=== PATIENT | female | born 2000 | race Two or more races ===

== ENCOUNTER 2022-03-25 08:37 | Outpatient (REF) | payer MEDICAID, SELFPAY ==
--- NOTE | ~2022-03-25 | US_ITS ---
EXAMINATION: US DIAGNOSTIC ULTRASOUND BREAST, BILATERAL CLINICAL INFORMATION: Pain and palpable abnormalities bilateral breasts. COMPARISON: None. TECHNIQUE: Ultrasound of the breast is performed with real-time lobo scale imaging and color Doppler. FINDINGS: RIGHT BREAST: At the 10 o'clock position approximately 11 cm from the nipple, in the region of palpable abnormality there is noted to be a hypoechoic well-circumscribed but somewhat lobular bordered 4.4 x 3.2 x 2.0 cm lesion without internal vascularity identified. The lesion is wider than it is tall. No significant distal sound shadowing or enhancement is appreciated. The lesion has the appearance of possible fibroadenoma. LEFT BREAST: At the 3 o'clock position, there is a well-circumscribed hypoechoic lesion which is wider than it is tall without internal vascularity 7 cm from the nipple. This measures approximately 3.0 x 2.5 x 3.4 cm in size. This has the appearance of possible fibroadenoma. Recommendation is for ultrasound-guided right breast biopsy of the slightly lobulated lesion to ensure the diagnosis of benign fibroadenoma with the bilateral breast lesions. It was discussed with the patient that if she is contemplating surgical removal of the lesions that the biopsy may not be necessary. Patient has said that she would prefer to have them surgically removed and will speak to the referring provider. I spoke to the referring provider's office with the above recommendation. US/US breast RT limited IMPRESSION: Bilateral solid avascular lesions with appearance of fibroadenomas for which biopsy of the left lesion is recommended if patient is not to have fibroadenomas removed surgically. ASSESSMENT: BI-RADS 4: Suspicious (subcategory 4A: Low suspicion for malignancy) RECOMMENDATION: Ultrasound-guided core biopsy if surgical removal is not planned.
== END 2022-03-25 08:38 | disposition home or self-care (01) ==
LOC: HO.MAMMO 08:37
PROVIDERS: Visit Provider Family Medicine
DX: N64.4 Mastodynia (principal)
CPT/HCPCS: 76642

== ENCOUNTER → 2022-04-15 15:56 | Outpatient (BNVA) | payer MEDICAID, SELFPAY | PROVIDERS: PCP Family Medicine; Referring Provider Family Medicine; Visit Provider Nurse Practitioner Family | DX: K58.1 Irritable bowel syndrome with constipation (principal); K21.9 Gastro-esophageal reflux disease without esophagitis; K59.04 Chronic idiopathic constipation; K80.20 Calculus of gallbladder without cholecystitis without obstruction | CPT/HCPCS: 99202 ==

== ENCOUNTER → 2022-04-19 13:43 | Outpatient (BNVA) | payer MEDICAID, SELFPAY | PROVIDERS: PCP Family Medicine; Referring Provider Family Medicine; Visit Provider Surgery | DX: D24.1 Benign neoplasm of right breast (principal); D24.2 Benign neoplasm of left breast | CPT/HCPCS: 99202 ==

== ENCOUNTER 2022-05-11 07:39 | Outpatient (REF) | payer MEDICAID, SELFPAY ==
--- NOTE | ~2022-05-11 | US_ITS ---
EXAMINATION: ULTRASOUND GUIDED CORE BIOPSY BREAST, RIGHT CLINICAL INFORMATION: 21-year-old with palpable fullness noted by patient for approximately one year, recently increased medial left and posterior upper outer right breast. No family history breast cancer. No discharge. Ultrasound demonstrates 4.4 cm mass likely fibroadenoma right breast 10:00 position 11 cm from nipple and a 3.4 cm mass left breast likely fibroadenoma 3:00 position 7 cm from nipple. COMPARISON: Targeted bilateral breast ultrasound 03/25/2022. FINDINGS: Hospital provided investments manager assisted for the consent and throughout the procedure. Proper informed consent is obtained from the patient after discussion of the procedure, potential risks and complications, and alternatives. Patient was given an opportunity for questions. The patient appeared to understand. The patient consented to the procedure and signed the consent form. GUIDANCE: Ultrasound-guided; aseptic technique. LESION: Macrolobulated solid mass posterior upper outer right breast, 4.4 cm in greatest dimension, probable fibroadenoma. APPROACH: Lateral medial. ANESTHESIA: 8 mL carbonated 1% lidocaine. DERMATOTOMY: Single skin vonda dermatotomy performed. NEEDLE: 14-gauge Achieve core biopsy device with 13.5-gauge co-axial guide needle. CORES: 4. CLIP: HydroMARK; shape: butterfly. Deployment of the clip within the mass is visible during real-time ultrasound. The patient tolerated the procedure well. No immediate complications. Home instructions reviewed with the patient. Final pathology results are pending. US/US breast ndl core biopsy RT IMPRESSION: 1. Status post ultrasound-guided core biopsy right breast. 2. Clip placed: HydroMARK; shape: butterfly. 3. Pathology pending. An addendum report will be issued.
[2022-05-11] MEDS: Lidocaine HCl 1 % 20 ML VIAL 9 ML SUBCUT (08:59)
[2022-05-11] MEDS: Sodium Bicarbonate 8.4% 50 MEQ/50 ML VIAL SUBCUT (09:00)
== END 2022-05-11 07:40 | disposition home or self-care (01) ==
LOC: HO.MAMMO 07:39
PROVIDERS: Visit Provider Surgery
DX: D24.1 Benign neoplasm of right breast (principal)
CPT/HCPCS: 19083; 88305

== ENCOUNTER → 2022-05-17 10:33 | Outpatient (BNVA) | payer MEDICAID, SELFPAY | PROVIDERS: Visit Provider Surgery | DX: D24.1 Benign neoplasm of right breast (principal); D24.2 Benign neoplasm of left breast | CPT/HCPCS: 99212 ==

== ENCOUNTER 2022-05-18 08:06 | Outpatient (REF) | payer MEDICAID, SELFPAY ==
[2022-05-18 11:47] LABS: Amylase 35 U/L (28-100); Lipase 13 U/L (8-78)
[2022-05-18 11:49] LABS: TSH reflex Free T4 4.86 uIU/mL (0.32-4.0)
[2022-05-18 12:37] LABS: Free T4 (Free Thyroxine) 1.03 ng/dL (0.71-1.85)
[2022-05-20 13:36] LABS: Transglutaminase Ab IgG <1.0 U/mL; Transglutaminase IgA <1.0 U/mL
== END 2022-05-18 08:07 | disposition home or self-care (01) ==
LOC: HO.HMGCLDS 08:06
PROVIDERS: PCP Family Medicine; Visit Provider Nurse Practitioner Family
DX: Z12.11 Encounter for screening for malignant neoplasm of colon (principal); R10.9 Unspecified abdominal pain; K21.9 Gastro-esophageal reflux disease without esophagitis
CPT/HCPCS: 36415; 82150; 83690; 84439; 84443; 86364

== ENCOUNTER → 2022-07-08 08:45 | Outpatient (BNVA) | payer MEDICAID, SELFPAY | PROVIDERS: PCP Family Medicine; Visit Provider Surgery | DX: K80.50 Calculus of bile duct without cholangitis or cholecystitis without obstruction (principal); Z79.899 Other long term (current) drug therapy | CPT/HCPCS: 99212 ==

== ENCOUNTER 2022-10-03 05:47 | Day surgery (SDC) | payer MEDICAID, SELFPAY ==
[2022-08-02 11:58] VITALS: BMI 27.6
--- NOTE | 2022-08-19 08:34 | HO.ANESPROP2 ---
HPI - Anesthesia Eval Consult details Narrative: 22yo F for Cholecystectomy Laparoscopic,poss open PMFSH Active Problems Active Problems: All Active Problems (Updated 08/02/22 @ 11:41 by Anel Guerrier, RN) Fibroadenoma of both breasts (Acute) Biliary colic (Acute) Past Medical History Medical History Abdominal pain Alopecia Family History Family History Paternal Grandmother Cancer Social History Social History Household Members: Children Alcohol intake: never Patient Tobacco Use Status: Never used Tobacco Meds Allergies Allergy/AdvReac Type Severity Reaction Status Date / Time No Known Allergies Allergy Verified 07/08/22 09:09 Home Medications Medication Instructions Recorded Confirmed Last Taken Type cholecalciferol (vitamin D3) 50 50 mcg PO DAILY 04/15/22 08/02/22 Unknown History mcg (2,000 unit) tablet pantoprazole 20 mg tablet,delayed 20 mg PO DAILY 04/15/22 08/02/22 Unknown History release Exam Exam Date and Time: August 19, 2022 0834 Height,Weight and Vital Signs: Height 5 ft 1 in Weight 66.224 kg Pertinent Lab Results Pertinent Lab Results: Laboratory Tests 05/18/22 08:13 Amylase 35 Lipase 13 TSH 4.86 H Free T4 1.03 Assessment and Plan Assessment Anesthesia Assessment: Chart Reviewed
--- NOTE | 2022-09-29 12:34 | HO.ANESPROP2 ---
Documented by User: Fidelina Villalta NP 09/29/22 12:35 HPI - Anesthesia Eval Consult details Narrative: 22yo F for Cholecystectomy Laparoscopic,poss open PMFSH Active Problems Active Problems: All Active Problems (Updated 08/02/22 @ 11:41 by Anel Guerrier RN) Fibroadenoma of both breasts (Acute) Biliary colic (Acute) Past Medical History Medical History Abdominal pain Alopecia Family History Family History Paternal Grandmother Cancer Social History Social History Household Members: Children Alcohol intake: never Patient Tobacco Use Status: Never used Tobacco Meds Allergies Allergy/AdvReac Type Severity Reaction Status Date / Time No Known Allergies Allergy Verified 07/08/22 09:09 Home Medications Medication Instructions Recorded Confirmed Last Taken Type cholecalciferol (vitamin D3) 50 50 mcg PO DAILY 04/15/22 08/02/22 Unknown History mcg (2,000 unit) tablet pantoprazole 20 mg tablet,delayed 20 mg PO DAILY 04/15/22 08/02/22 Unknown History release Exam Exam Date and Time: September 29, 2022 1234 Height,Weight and Vital Signs: Height 5 ft 1 in Weight 66.224 kg Assessment and Plan Assessment Anesthesia Assessment: Chart Reviewed Documented by User: Tin Banuelos MD 10/03/22 17:46 PMFSH Past Medical History Medical History Abdominal pain Alopecia Functional capacity: independent ambulation Family History Family History Paternal Grandmother Cancer Family history of problems with anesthesia: No Surgical History History of Problems with Anesthesia: No Social History Social History Household Members: Children Alcohol intake: never Patient Tobacco Use Status: Never used Tobacco Meds Allergies Allergy/AdvReac Type Severity Reaction Status Date / Time No Known Allergies Allergy Verified 07/08/22 09:09 Home Medications Medication Instructions Recorded Confirmed Last Taken Type cholecalciferol (vitamin D3) 50 50 mcg PO DAILY 04/15/22 08/02/22 Unknown History mcg (2,000 unit) tablet pantoprazole 20 mg tablet,delayed 20 mg PO DAILY 04/15/22 08/02/22 Unknown History release Exam Airway Mallampati Class: III TM Dist: >3cm Neck ROM: Full Loose/Missing/Broken Teeth: Yes Heart: S1,S2 Lungs: b/l breath sounds Assessment and Plan Assessment Anesthesia Assessment: Anesthesia Plan Discussed Final Anesthetic Review Family History of Problems with Anesthesia: No History of Problems with Anesthesia: No NPO: Yes ASA Class: II Final Preanesthetic Review: Meds/Allgs Chart Reviewed, Consent Obtained/Reviewed and Anes Risks/Benef Reviewed Patient Risk: Intermediate Procedure Risk: Intermediate Anesthetic Plan Anesthetic Plan: GA Disposition: Standard PACU
[2022-10-03] VITALS (11 sets, daily range): BP systolic 97–111; BP diastolic 53–70; PULSE 54–104; RESP 16–18; TEMP 36.1–36.7; O2SAT 97–100; BMI 26.6
[2022-10-03 06:27] LABS: UPreg QC Valid YES; Urine Pregnancy NEGATIVE (NEGATIVE)
[2022-10-03] MEDS: Lactated Ringers 1,000 ML 100 ML IVCONT (06:44)
--- NOTE | 2022-10-03 07:14 | MHC.SHP ---
Pre-Procedural Eval Section A Date of Service: 10/03/22 The patient is an INPATIENT: No Changes since office visit: Yes Patient answered all questions; No Cold of Flu in the past 2 weeks, No New Medical Problems and No Changes in Medication The History & Physical has been completed within 30 days and I have reviewed it.: No Section B Chief Complaint: Calculus of bile duct without cholangitis or pascual Details of Present Illness: Episodes of abdominal pain, the last occurring 1 week ago. She currently feels well with no abdominal pain Relevant Family History (Specify if Yes): No Relevant Social History: None Present Medications: see Short Stay Collaborative assessment Medical History: No relevant PMH History of Previous Operations: No relevant previous surgery Allergies: Allergies Allergy/AdvReac Type Severity Reaction Status Date / Time No Known Allergies Allergy Verified 07/08/22 09:09 Review of Systems Sugical H&P ROS: Negative: Constitution, Cardiovascular, Respiratory, Neurological, Psychiatric, Hem-Onc, Allergic/Immunologic, Gastrointestinal, Genitourinary, Musculoskeletal, Integumentary, Endocrine and Eyes/Ears/Nose/Throat Exam Surgical H&P Exam: Normal: HEENT, Normal: Heart, Normal: Lungs, Normal: Extremities, Normal: Abdomen, Normal: Skin and Normal: Neurological Plan Diagnosis/Plan: Unchanged I have reviewed the history and physical and performed a pertinent physical examination on my patient. No changes have occurred unless specified.
--- NOTE | 2022-10-03 08:41 | W.PM.OPN ---
Operative Note Operative Note Date of Service: 10/03/22 Narrative: Preoperative diagnosis: Bilary colic Postoperative diagnosis: Same Procedure: Laparoscopic cholecystectomy Surgeon: Lauro Westbrook MD Band Director: MELISSA See Anesthesia: General endotracheal Indications for procedure: 22-year-old female patient presenting with complaints of abdominal pain in the right upper quadrant found to have gallstones within the gallbladder. Patient's last episode of pain was approximately 1 week prior to surgery. Operative findings: Evidence of chronic cholecystitis with adhesions to the undersurface of the gallbladder. Specimen: gallbladder Estimated blood loss: Less than 2 mL Complications: none Procedure details: Patient was brought to the OR and placed in a supine position. After administering general anesthesia the patient's abdomen was prepped with ChloraPrep and draped in a sterile fashion. Local anesthesia consisting of 0.5% Sensorcaine without epinephrine was infiltrated in a periumbilical region. A 5 mm incision was made above the umbilicus in a transverse fashion. The Veress needle was then inserted while elevating abdominal cavity with towel clips. After positive drop test the abdomen was insufflated to a pressure of 15 mm of mercury. The Veress needle was then removed and a 5 mm trocar inserted. The camera was inserted in the abdomen explored. A 12 mm trocar was then placed in the epigastrium. Two 5 mm trocars placed in the right upper quadrant by the greenhouse assistant. The patient was placed in reverse Trendelenburg positioning and rotated to the left. The gallbladder was grasped with the fundus and retracted cephalad by the greenhouse assistant. The infundibulum was then grasped and retracted away from the liver bed, also by the greenhouse assistant. The Dolphin dissected was then used by the surgeon to dissect the peritoneum off the infundibulum to reveal the junction with the cystic duct. Cystic artery was noted slightly medial and posterior to the cystic duct. After obtaining a critical view the cystic duct was doubly clipped and divided. The cystic artery was then doubly clipped and divided. The gallbladder was then dissected off the liver bed using electrocautery with an L hook. Hemostasis was assured all times using the electrocautery. When the gallbladder is completely dissected off the liver bed was placed in an Endo-Catch bag and brought out through the epigastric incision . There were no drop stones. The gallbladder was sent to pathology for further examination. The abdomen was then re-examined. The liver bed was irrigated and suctioned dry. No bleeding or bile leak could be identified. CO2 was then evacuated and all trocars removed. Fascia was closed at the epigastric incision using a [id number] Polysorb suture. Skin was closed in all incisions using a subcuticular 4 0 Polysorb suture by both the surgeon and greenhouse assistant. Sterile dressings consisting of Steri-Strips, 2 x 2 gauze, and Tegaderm were then applied. The patient tolerated the procedure well. Sponge instrument and needle counts reported as correct. The patient was transferred to PACU in stable condition.
[2022-10-03] MEDS: ondansetron HCL 4 MG/2 ML VIAL IVPUSH (09:09)
[2022-10-03] MEDS: oxyCODONE HCl Immed Release 5 MG TABLET PO (09:31)
[2022-10-03] MEDS: fentaNYL citrate/PF 100 MCG/2 ML VIAL 25 MCG IVPUSH (09:47)
== END 2022-10-03 10:59 | disposition home or self-care (01) ==
PROVIDERS: Nurse Practitioner; PCP Family Medicine; Visit Provider Surgery
PROC: 0FT44ZZ Resection of Gallbladder, Percutaneous Endoscopic Approach (ICD-10-PCS; CPT 47562; principal; 2022-10-03 07:30)
DX: K80.10 Calculus of gallbladder with chronic cholecystitis without obstruction (principal); K66.0 Peritoneal adhesions (postprocedural) (postinfection); Z79.899 Other long term (current) drug therapy
CPT/HCPCS: 47562; 81025; 88304; J1170; J2250; J2405; J2550; J2795; J3010

== ENCOUNTER 2022-11-15 14:06 | Outpatient (REF) | payer MEDICAID, SELFPAY ==
--- NOTE | ~2022-11-15 | US_ITS ---
EXAMINATION: BILATERAL BREAST ULTRASOUND CLINICAL INFORMATION: Bilateral fibroadenomas followup with previous right breast fibroadenoma biopsied. COMPARISON: 05/11/2022 and 03/25/2022 TECHNIQUE: Bilateral targeted breast ultrasound. FINDINGS: Left breast: At approximately the 3 o'clock position, there is again noted to be a heterogeneous and hypoechoic mass which is well-circumscribed measuring approximately 3.8 x 2.8 x 2.9 cm. There is some internal vascularity present. This is stable or slightly smaller in size. Right breast: At the 10 o'clock position 6 cm from the nipple there is again noted to be hypoechoic mass with clip within it from previous biopsy, measuring approximately 3.2 x 2.0 x 3.6 cm in size without significant change in appearance. The lesion is wider than it is tall. There is some internal vascularity. US/US breast RT complete IMPRESSION: No significant change in appearance of hypoechoic masses within the bilateral breasts, consistent with fibroadenomas. Six-month follow up ultrasound is recommended bilaterally. BI-RADS 3, probably benign. RECOMMENDATION: 6 month bilateral ultrasound study.
--- NOTE | ~2022-11-15 | US_ITS ---
EXAMINATION: BILATERAL BREAST ULTRASOUND CLINICAL INFORMATION: Bilateral fibroadenomas followup with previous right breast fibroadenoma biopsied. COMPARISON: 05/11/2022 and 03/25/2022 TECHNIQUE: Bilateral targeted breast ultrasound. FINDINGS: Left breast: At approximately the 3 o'clock position, there is again noted to be a heterogeneous and hypoechoic mass which is well-circumscribed measuring approximately 3.8 x 2.8 x 2.9 cm. There is some internal vascularity present. This is stable or slightly smaller in size. Right breast: At the 10 o'clock position 6 cm from the nipple there is again noted to be hypoechoic mass with clip within it from previous biopsy, measuring approximately 3.2 x 2.0 x 3.6 cm in size without significant change in appearance. The lesion is wider than it is tall. There is some internal vascularity. US/US breast LT complete IMPRESSION: No significant change in appearance of hypoechoic masses within the bilateral breasts, consistent with fibroadenomas. Six-month follow up ultrasound is recommended bilaterally. BI-RADS 3, probably benign. RECOMMENDATION: 6 month bilateral ultrasound study.
== END 2022-11-15 14:07 | disposition home or self-care (01) ==
LOC: HO.MAMMO 14:06
PROVIDERS: PCP Family Medicine; Visit Provider Surgery
DX: D24.2 Benign neoplasm of left breast (principal); D24.1 Benign neoplasm of right breast
CPT/HCPCS: 76641